=== PATIENT | female | born 1965 | race Caucasian/White ===

== ENCOUNTER → 2016-11-14 | Outpatient (REF) | LOC: WSOH 12:55 | DX: Z01.10 Encounter for examination of ears and hearing without abnormal findings (principal) ==

== ENCOUNTER → 2018-03-21 | Outpatient (CLI) | payer OTHER | LOC: MC.RAD 14:38 | DX: Z12.31 Encounter for screening mammogram for malignant neoplasm of breast (principal) ==

== ENCOUNTER → 2020-03-04 | Outpatient (CLI) | payer BC | LOC: COL.VAS 13:29 | DX: H35.62 Retinal hemorrhage, left eye (principal) ==

== ENCOUNTER → 2020-04-07 | Outpatient (CLI) | payer BC | LOC: MC.RAD 16:19 | DX: Z12.31 Encounter for screening mammogram for malignant neoplasm of breast (principal) ==

== ENCOUNTER → 2022-11-15 | Outpatient (CLI) | payer BC | LOC: MC.RAD 07:14 | DX: Z12.31 Encounter for screening mammogram for malignant neoplasm of breast (principal) ==

== ENCOUNTER 2023-07-09 15:10 | Emergency (ER) | payer BC ==
[~2023-07-09] VITALS: Ht 167.6 cm; Wt 78.6 kg
[2023-07-09 15:19] VITALS: TEMP 98.2
[2023-07-09 15:40] LABS: BASO % 0.5 % (0.0-2.0); EOS % 0.3 % (0.0-4.0); GRAN # 5.8 K/mm3 (1.4-6.5); GRAN % 77.7 % (42.2-75.2); HEMATOCRIT 41.6 % (37.0-47.0); HEMOGLOBIN 13.6 g/dl (12.5-16.0); LYMPH # 1.2 K/mm3 (1.2-3.4); LYMPH % 15.7 % (20.0-51.0); MEAN CELL VOLUME 92 fl (80.0-100.0); MEAN CORPUSCULAR HEMOGLOBIN 30 pg (27-31); MEAN CORPUSCULAR HGB CONC 33 g/dl (33.0-37.0); MONO # 0.4 K/mm3 (0.1-0.6); MONO % 5.5 % (1.7-9.3); PLATELET COUNT 243 K/mm3 (130-400); RED BLOOD COUNT 4.54 M/mm3 (4.10-5.30); REDCELL DISTRIBUTION WIDTH-CV 12.2 % (11.5-14.5)
[2023-07-09 15:55] LABS: ALANINE AMINOTRANSFERASE 28 U/L (0-55); ALBUMIN 4.6 gm/dL (3.5-5.0); ALKALINE PHOSPHATASE 75 U/L (40-150); ANION GAP 12 mmol/L (7-16); AST,SGOT 20 U/L (5-34); BILIRUBIN,TOTAL 0.6 mg/dL (0.2-1.2); BLOOD UREA NITROGEN 12 mg/dL (10-20); CALCIUM 9.4 mg/dL (8.4-10.2); CARBON DIOXIDE 23 mmol/L (22-29); CHLORIDE 101 mmol/L (98-107); CREATININE, serum 0.78 mg/dL (0.57-1.11); GLUCOSE 97 mg/dL (70-99); SODIUM 136 mmol/L (136-145); TOTAL PROTEIN 7.2 gm/dL (6.2-8.1)
[2023-07-09 16:14] LABS: TSH w REFLEX 1.412 uIU/mL (0.350-4.940)
[2023-07-09 16:16] LABS: TROPONIN-I < 0.010 ng/mL (0.00-0.033)
[2023-07-09 16:34] LABS: COLLECTION METHOD CLEAN CATCH
[2023-07-09 16:48] LABS: URINE APPEARANCE Clear (CLEAR/HAZY); URINE BLOOD TRACE-INTACT (NEGATIVE); URINE COLOR Yellow (YELLOW); URINE GLUCOSE Negative (NEGATIVE); URINE KETONE Negative (NEGATIVE); URINE NITRATE Negative (NEGATIVE); URINE PROTEIN(semi-quant) Negative (NEGATIVE); URINE UROBILINOGEN 0.2 E.U/dL (0.2-1.0)
[2023-07-09 16:56] LABS: SQUAMOUS EPITHELIAL 0-2 /hpf (0-10); URINE BACTERIA Rare /hpf (NONE SEEN); URINE RBC 0-2 /hpf (0-2)
[2023-07-09 18:00] VITALS: BP 129/83; PULSE 79
== END 2023-07-09 17:58 | disposition home or self-care (01) ==
LOC: COL.ER 15:10
PROVIDERS: Physician Assistant
DX: R55 Syncope and collapse (principal)
CPT/HCPCS: Q9967

== ENCOUNTER → 2024-05-22 | Outpatient (CLI) | payer BC ==
[~2024-05-22] MED LIST: TOPROL XL 25MG25 MG PO
== END ==
LOC: MC.RAD 08:32
DX: Z12.31 Encounter for screening mammogram for malignant neoplasm of breast (principal)